=== PATIENT | male | born 1980 | race Caucasian/White ===

== ENCOUNTER 2018-02-18 21:37 | Emergency (ER) | payer SELFPAY, BC | END 2018-02-18 22:51 | disposition left against medical advice (07) | LOC: E/R 21:37 | DX: Z53.21 Procedure and treatment not carried out due to patient leaving prior to being seen by health care provider (principal) ==

== ENCOUNTER 2018-02-25 11:56 | Emergency (ER) | payer OTHER, BC | END 2018-02-25 13:07 | disposition home or self-care (01) | LOC: E/R 11:56 | DX: Z72.89 Other problems related to lifestyle (principal); R40.2142 Coma scale, eyes open, spontaneous, at arrival to emergency department; R40.2362 Coma scale, best motor response, obeys commands, at arrival to emergency department; R40.2242 Coma scale, best verbal response, confused conversation, at arrival to emergency department; Z00.00 Encounter for general adult medical examination without abnormal findings | CPT/HCPCS: 99282; Z7502 ==

== ENCOUNTER 2018-03-02 13:40 | Emergency (ER) | payer OTHER | END 2018-03-02 14:32 | disposition home or self-care (01) | LOC: E/R 13:40 | DX: F41.9 Anxiety disorder, unspecified (principal) | CPT/HCPCS: 93005; 99282 ==